=== PATIENT | male | born 1980 | race Caucasian/White ===

== ENCOUNTER 2018-04-18 21:04 | Emergency (ER) | payer BC ==
[2018-04-18 21:13] VITALS: BP 117/69
--- NOTE | 2018-04-18 21:17 | UC ---
Throat Pain/Nasal Hector HPI - HPI Summary HPI Summary: 37 yo male presents with a low grade fever for 3 days and headache for the last 2 days. Says that he has never had a headache like this before and it is mostly on the right temporal/frontal part of his head - worse with any movement. Has been eating and drinking ok except for today, he feels very nauseous, weak, and dizzy. He took ibuprofen this morning and tylenol around 1300 today. Denies recent illness, cough, SOB, chest pain, abdominal pain, vomiting, diarrhea, dysuria, or back pain. - History of Current Complaint Chief Complaint: UCRespiratory Stated Complaint: HEADACHE, LOW GRADE TEMP Time Seen by Provider: 04/18/18 21:17 Hx Obtained From: Patient Onset/Duration: Gradual Onset Severity: Severe Pain Intensity: 7 Pain Scale Used: 0-10 Numeric - Allergies/Home Medications Allergies/Adverse Reactions: Allergies Allergy/AdvReac Type Severity Reaction Status Date / Time ondansetron [From Zofran] Allergy Severe Hives Verified 04/18/18 21:14 Home Medications: Home Medications Acetaminophen [Extra Strength Non-Aspirin] 1,000 mg PO ONCE PRN 04/18/18 [ History Confirmed 04/18/18] Ibuprofen TAB* [Advil TAB*] 600 mg PO ONCE PRN 04/18/18 [History Confirmed 04/18] PMH/Surg Hx/FS Hx/Imm Hx - Additional Past Medical History Additional PMH: None Previously Healthy: Yes - Surgical History Surgical History: Yes Surgery Procedure, Year, and Place: left eye operation, ORAL SURGERY - Family History Known Family History: Positive: None - Social History Occupation: Employed Full-time Lives: With Family Alcohol Use: Occasionally Alcohol Amount: 2 Beers Daily Substance Use Type: None Smoking Status (MU): Light Every Day Tobacco Smoker Type: Cigarettes Amount Used/How Often: 1-3 cigarettes per day Length of Time of Smoking/Using Tobacco: 10 day Have You Smoked in the Last Year: Yes Review of Systems Constitutional: Fever, Fatigue Skin: Negative Eyes: Negative ENT: Sore Throat Respiratory: Negative Cardiovascular: Negative Gastrointestinal: Negative Neurovascular: Negative Musculoskeletal: Negative Neurological: Headache Psychological: Negative All Other Systems Reviewed And Are Negative: Yes Physical Exam - Summary Physical Exam Summary: GENERAL: WDWN. Shielding his eyes from the exam room lights SKIN: No rashes, sores, ulcers, masses, lesions. HEENT: Head: AT/NC Eyes: PERRLA. EOM intact. Conjunctiva clear without inflammation or discharge. Ears: Hearing grossly normal. TMs intact, no bulging, erythema, or edema. Nose: Nasal mucosa pink and moist. NTTP maxillary and frontal sinus. Throat: Posterior oropharynx without exudates, erythema, or tonsillar enlargement. Uvula midline. NECK: Supple. Nontender. No lymphadenopathy. CHEST: CTAB. No r/r/w. No accessory muscle use. Breathing comfortably and in no distress. CV: RRR. Without m/r/g. Pulses intact. Brisk cap refill. ABDOMEN: Soft. NTTP. No distention or guarding. No organomegaly. No CVA tenderness. Bowel sounds present MSK: FROM and 5/5 strength throughout. No edema. NEURO: Alert. CN II-XII grossly intact. PSYCH: Age appropriate behavior. Triage Information Reviewed: Yes Vital Signs: Initial Vital Signs Temp 101.5 F 04/18/18 21:09 Pulse 81 04/18/18 21:09 Resp 16 04/18/18 21:09 BP 117/69 04/18/18 21:09 Pulse Ox 97 04/18/18 21:09 Throat Pain/Nasal Course/Dx - Course Course Of Treatment: POC strep negative. Given 975mg tylenol and 4mg zofran in the clinic tonight. I had a long discussion with the pt that I am unsure as to the cause of his fever and worsening headache. I advised him that he should go to the ED to be further evaluated. He was agreeable to this plan and declined ambulance transfer. - Differential Dx/Diagnosis Provider Diagnoses: Fever. Headache. Photophobia Discharge - Sign-Out/Discharge Documenting (check all that apply): Discharge/Admit/Transfer - Discharge Plan Condition: Stable Disposition: HOME Forms: *Work Release Referrals: Carmelo Castellanos MD [Primary Care Provider] - Additional Instructions: Please go to the ER for further evaluation of your headache, photophobia, and fever. - Billing Disposition and Condition Condition: STABLE Disposition: Home
[2018-04-18] MEDS ORDERED: Acetaminophen TAB* 325 MG PO ONE (21:26)
[2018-04-18] MEDS ORDERED: Ondansetron ODT TAB* 4 MG PO ONE (21:35)
== END 2018-04-18 22:00 | disposition home or self-care (01) ==
LOC: UCEAST 21:04
DX: R50.9 Fever, unspecified (principal); R51 Headache; H53.149 Visual discomfort, unspecified; Z88.8 Allergy status to other drugs, medicaments and biological substances; F17.210 Nicotine dependence, cigarettes, uncomplicated
CPT/HCPCS: 87651; 99212; A9270-GY; G0463

== ENCOUNTER 2018-04-19 03:56 | Emergency (ER) | payer BC ==
[2018-04-19] MEDS ORDERED: methylPREDNISolone 125 MG* 2 ML VIAL IV ONE (04:23)
[2018-04-19] MEDS ORDERED: NS 0.9% 1000 ML* 1,000 ML IV ONE (04:23)
[2018-04-19] MEDS ORDERED: Ketorolac INJ* 30 MG/ML 1 ML VIAL IV PUSH ONE (04:23)
[2018-04-19 04:50] LABS: Hematocrit 39 % (42-52); Hemoglobin 13.7 g/dl (14.0-18.0); Mean Corpuscular HGB Conc 36 g/dl (31-36); Mean Corpuscular Hemoglobin 32 pg (27-31); Mean Corpuscular Volume 89 fL (80-94); Mean Platelet Volume 9.2 um3 (7.4-10.4); Platelet Count 146 10^3/ul (150-450); Red Blood Count 4.32 10^6/ul (4.00-5.40); Red Cell Distribution Width 12 % (10.5-15)
[2018-04-19 05:04] LABS: EGFR Non-African American 83.2 (>60)
[2018-04-19 05:11] LABS: ABS Basophils 0 10^3/ul (0-0.2); ABS Eosinophils 0 10^3/ul (0-0.6); ABS Lymphocytes 0.6 10^3/ul (1.0-4.8); ABS Monocytes 0.7 10^3/ul (0-0.8); ABS Neutrophils 4.5 10^3/ul (1.5-7.7)
[2018-04-19] MEDS ORDERED: Butalb/Acetamin/Caff TAB* 1 TAB PO ONE (05:21)
[2018-04-19 05:35] LABS: ABS Nucleated RBC 0 10^3/ul; Eosinophil % 0.5 % (0-6); Lymphocyte % 9.5 % (25-47); Nucleated Red Blood Cells % 0.1
[2018-04-19 06:37] VITALS: BP 111/57
--- NOTE | 2018-04-19 07:22 | ED ---
Shante Wang Gabriel, scribed for Alfredo Hyatt MD on 04/19/18 at 0419 . HPI Febrile Illness - HPI Summary HPI Summary: This patient is a 37 year old M presenting to [facility] c/o febrile illness that began two days ago. The patient rates the pain 7/10 in severity. Pts last antipyretic was last night at 2145.Patient reports nausea, dizziness, low grade fever (100), very intense VERA, sore throat, and diaphoresis. Patient denies cough , neck pain or stiffness, and recent travel. Pt seen at yesterday but is not improving. Pt states his headache is not severe while lying still but it is very intense if he learns forward. Pt states sick contacts at home and work. - History of Current Complaint Chief Complaint: EDHeadache Time Seen by Provider: 04/19/18 04:05 Hx From Patient Unobtainable Due To: Dementia Timing: Constant Initial Severity: Moderate Current Severity: Moderate Pain Intensity: 7 Pain Scale Used: 0-10 Numeric Associated Signs and Symptoms: Diaphoresis, Nausea, Other: - light headedness - Allergy/Home Medications Allergies/Adverse Reactions: Allergies Allergy/AdvReac Type Severity Reaction Status Date / Time ondansetron [From Zofran] Allergy Severe Hives Verified 04/19/18 04:01 PMH/Surg Hx/FS Hx/Imm Hx Endocrine/Hematology History: Denies: Hx Thyroid Disease, Hx Anemia, Hx Coagulopothy Cardiovascular History: Denies: Hx Auto Implanted Cardiovert Defib, Hx Cardiac Arrest, Hx Congenital Heart Disease Respiratory History: Denies: Hx Chronic Obstructive Pulmonary Disease (COPD), Hx Lung Cancer GI History: Denies: Hx Gastrointestinal Bleed Psychiatric History: Denies: Hx Attention Deficit Hyperactivity Disorder - Surgical History Surgery Procedure, Year, and Place: left eye operation, ORAL SURGERY - Immunization History Date of Tetanus Vaccine: 2013 (10/11/14) Date of Influenza Vaccine: 2013 Infectious Disease History: No Infectious Disease History: Denies: Hx Clostridium Difficile, Hx Hepatitis, Hx Human Immunodeficiency Virus (HIV), Hx of Known/Suspected MRSA, Hx Shingles, Hx Tuberculosis, Hx Known/ Suspected VRE, Hx Known/Suspected VRSA, History Other Infectious Disease, Traveled Outside the [place] in Last 30 Days - Family History Known Family History: Positive: None Negative: Blood Disorder - Social History Occupation: Employed Full-time - nurse Lives: With Family Alcohol Use: Occasionally Alcohol Amount: 2 Beers Daily Substance Use Type: Reports: None Smoking Status (MU): Light Every Day Tobacco Smoker Type: Cigarettes Amount Used/How Often: 1-3 cigarettes per day Length of Time of Smoking/Using Tobacco: 10 day Have You Smoked in the Last Year: Yes Review of Systems Positive: Fever, Skin Diaphoresis Positive: Sore Throat Positive: Nausea Neurological: Other - dizziness Positive: Headache All Other Systems Reviewed And Are Negative: Yes Physical Exam - Summary Physical Exam Summary: Appearance: no distress, Well-nourished Skin: Warm, color reflects adequate perfusion Head: Normal Head/Face inspection Eyes: Conjunctiva clear, PERRLA ENT: Normal inspection Neck: Supple, no adenopathy, no meningusmus Respiratory: Lungs clear, Normal breath sounds, no respiratory distress Cardio: RRR, No murmur, pulses normal, brisk capillary refill Abdomen: soft, nontender, no guarding, no rebound Bowel sounds: present Musculoskeletal: Strength Intact/ ROM intact. No calf tenderness. No edema. Neuro: Alert, muscle tone normal, facial symmetry, speech normal, sensory/motor intact; CN intact II-XII Psychological: Normal Triage Information Reviewed: Yes Vital Signs On Initial Exam: Initial Vitals Temp Pulse Resp BP Pulse Ox 100.5 F 82 16 110/61 97 04/19/18 03:57 04/19/18 03:57 04/19/18 03:57 04/19/18 03:57 04/19/18 03:57 Vital Signs Reviewed: Yes Diagnostics - Vital Signs Vital Signs Temp Pulse Resp BP Pulse Ox 04/19/18 03:57 100.5 F 82 16 110/61 97 - Laboratory Lab Results: Lab Results 04/19/18 04/19/18 04/19/18 Range/Units 04:40 04:40 04:41 WBC 6.0 (3.5-10.8) 10^3/ul RBC 4.32 (4.00-5.40) 10^6/ul Hgb 13.7 L (14.0-18.0) g/dl Hct 39 L (42-52) % MCV 89 (80-94) fL MCH 32 H (27-31) pg MCHC 36 (31-36) g/dl RDW 12 (10.5-15) % Plt Count 146 L (150-450) 10^3/ul MPV 9.2 (7.4-10.4) um3 Neut % (Auto) 77.0 (38-83) % Lymph % (Auto) 9.5 L (25-47) % Lucas % (Auto) 12.6 H (0-7) % Eos % (Auto) 0.5 (0-6) % Baso % (Auto) 0.4 (0-2) % Absolute Neuts (auto) 4.5 (1.5-7.7) 10^3/ul Absolute Lymphs (auto) 0.6 L (1.0-4.8) 10^3/ul Absolute Monos (auto) 0.7 (0-0.8) 10^3/ul Absolute Eos (auto) 0 (0-0.6) 10^3/ul Absolute Basos (auto) 0 (0-0.2) 10^3/ul Absolute Nucleated RBC 0 10^3/ul Nucleated RBC % 0.1 Sodium 135 (135-145) mmol/L Potassium 3.9 (3.5-5.0) mmol/L Chloride 102 (101-111) mmol/L Carbon Dioxide 25 (22-32) mmol/L Anion Gap 8 (2-11) mmol/L BUN 12 (6-24) mg/dL Creatinine 1.00 (0.67-1.17) mg/dL Est GFR ( Amer) 107.0 (>60) Est GFR (Non-Af Amer) 83.2 (>60) BUN/Creatinine Ratio 12.0 (8-20) Glucose 113 H (70-100) mg/dL Calcium 8.6 (8.6-10.3) mg/dL Total Bilirubin 0.90 (0.2-1.0) mg/dL AST 19 (13-39) U/L ALT 14 (7-52) U/L Alkaline Phosphatase 57 (34-104) U/L Total Protein 6.3 L (6.4-8.9) g/dL Albumin 3.9 (3.2-5.2) g/dL Globulin 2.4 (2-4) g/dL Albumin/Globulin Ratio 1.6 (1-3) Influenza A (Rapid) Negative (Negative) Influenza B (Rapid) Negative (Negative) Result Diagrams: 06/17/18 04:40 04/19/18 04:40 Lab Statement: Any lab studies that have been ordered have been reviewed, and results considered in the medical decision making process. Re-Evaluation - Re-Evaluation First Eval Re-Evaluation Time: 06:25 Change: Improved Comment: Pt resting comfortably in bed. pt with no evidence of acute bacterial infection. pt with no meningismus. Pt symptoms most consistent with viral infection. Pt headache resolved. Pt repeat CN exam intact II-XII. Course/Dx - Febrile Illness Differential Diagnoses: Fever of Unknown Origin, Meningitis, Pneumonia, Sepsis, Viremia - Diagnoses Provider Diagnoses: Viral syndrome Discharge - Sign-Out/Discharge Documenting (check all that apply): Discharge/Admit/Transfer - Discharge Plan Condition: Improved Disposition: HOME Prescriptions: Ketorolac TAB * [Toradol TAB *] 10 mg PO Q6H PRN #10 tab PRN Reason: Pain predniSONE TAB* [Deltasone 20 MG TAB*] 40 mg PO DAILY 3 Days #6 tab Patient Education Materials: Viral Syndrome (ED) Forms: *Work Release Referrals: Carmelo Castellanos MD [Primary Care Provider] - 2 Days - Billing Disposition and Condition Condition: IMPROVED Disposition: Home The documentation as recorded by the Shante tomlin Gabriel accurately reflects the service I personally performed and the decisions made by Edmar mari Omari A, MD.
== END 2018-04-19 06:45 | disposition home or self-care (01) ==
LOC: ED 03:56
DX: B34.9 Viral infection, unspecified (principal); J02.9 Acute pharyngitis, unspecified; R50.9 Fever, unspecified; F17.210 Nicotine dependence, cigarettes, uncomplicated; R51 Headache; R11.0 Nausea
CPT/HCPCS: 36415; 80053; 82607; 82728; 82746; 83540; 85025; 86710; 87502; 96374; 96375; 99283; A9270-GY; J1885; J2930

== ENCOUNTER 2018-09-06 12:45 | Emergency (ER) | payer BC, OTHER ==
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
[2018-09-06 13:23] VITALS: BP 133/71
== END 2018-09-06 13:22 | disposition home or self-care (01) ==
LOC: ED 12:45
DX: S10.93XA Contusion of unspecified part of neck, initial encounter (principal); Y04.2XXA Assault by strike against or bumped into by another person, initial encounter; Y93.F9 Activity, other caregiving; Y92.238 Other place in hospital as the place of occurrence of the external cause; Y99.0 Civilian activity done for income or pay; Z88.8 Allergy status to other drugs, medicaments and biological substances; F17.210 Nicotine dependence, cigarettes, uncomplicated
CPT/HCPCS: 99282

== ENCOUNTER 2019-05-31 12:30 | Emergency (ER) | payer BC ==
[2019-05-31 13:39] VITALS: BP 112/68
--- NOTE | 2019-05-31 14:03 | UC ---
Throat Pain/Nasal Hector HPI - HPI Summary HPI Summary: 38 yo male with sore thoat x > 7 days nasal congestion and post nasal drip very mild cough no f/c no n/v/d - History of Current Complaint Chief Complaint: UCGeneralIllness Stated Complaint: ST Time Seen by Provider: 05/31/19 12:51 Hx Obtained From: Patient Onset/Duration: Gradual Onset, Lasting Days Severity: Moderate Pain Intensity: 4 Pain Scale Used: 0-10 Numeric Associated Signs & Symptoms: Positive: Dysphagia - Allergies/Home Medications Allergies/Adverse Reactions: Allergies Allergy/AdvReac Type Severity Reaction Status Date / Time ondansetron [From Zofran] Allergy Severe Hives Verified 05/31/19 13:39 PMH/Surg Hx/FS Hx/Imm Hx Previously Healthy: Yes - Lyme disease - Surgical History Surgical History: Yes Surgery Procedure, Year, and Place: left eye operation, ORAL SURGERY - Family History Known Family History: Positive: Hypertension Negative: Blood Disorder - Social History Alcohol Use: Occasionally Alcohol Amount: 2 Beers Daily Substance Use Type: None Smoking Status (MU): Light Every Day Tobacco Smoker Type: Cigarettes Amount Used/How Often: 1-3 cigarettes per day Length of Time of Smoking/Using Tobacco: 10 day Have You Smoked in the Last Year: Yes - Immunization History Most Recent Influenza Vaccination: unknown Most Recent Pneumonia Vaccination: never Review of Systems All Other Systems Reviewed And Are Negative: Yes Constitutional: Positive: Negative Skin: Positive: Negative Eyes: Positive: Negative ENT: Positive: Sore Throat, Nasal Discharge, Sinus Congestion, Sinus Pain/ Tenderness Respiratory: Positive: Cough Cardiovascular: Positive: Negative Gastrointestinal: Positive: Negative Genitourinary: Positive: Negative Motor: Positive: Negative Neurovascular: Positive: Negative Musculoskeletal: Positive: Negative Neurological: Positive: Negative Psychological: Positive: Negative Physical Exam Triage Information Reviewed: Yes Appearance: Well-Appearing, No Pain Distress, Well-Nourished Vital Signs: Initial Vital Signs Temp 99.3 F 05/31/19 13:37 Pulse 68 05/31/19 13:37 Resp 16 05/31/19 13:37 BP 112/68 05/31/19 13:37 Pulse Ox 100 05/31/19 13:37 Vital Signs Reviewed: Yes Eyes: Positive: Conjunctiva Clear ENT: Positive: Hearing grossly normal, Pharyngeal erythema, Nasal congestion, TMs normal, Hoarse voice, Sinus tenderness, Uvula midline. Negative: Nasal drainage, Tonsillar swelling, Tonsillar exudate, Trismus, Muffled voice Dental Exam: Normal Neck: Positive: Supple, Enlarged Nodes @ - ant cerv Respiratory: Positive: Lungs clear, Normal breath sounds, No respiratory distress, No accessory muscle use Cardiovascular: Positive: RRR, No Murmur Musculoskeletal: Positive: ROM Intact, No Edema Neurological: Positive: Alert Psychological Exam: Normal Skin Exam: Normal Diagnostics - Laboratory Lab Results: strep (-) Throat Pain/Nasal Course/Dx - Differential Dx/Diagnosis Provider Diagnosis: Pharyngitis, Sinusitis Discharge - Sign-Out/Discharge Documenting (check all that apply): Patient Departure All imaging exams completed and their final reports reviewed: No Studies - Discharge Plan Condition: Critical Disposition: HOME Prescriptions: Amoxicillin PO (*) [Amoxicillin 875 MG (*)] 875 mg PO BID #20 tab Patient Education Materials: Pharyngitis (ED) Referrals: Carmelo Castellanos MD [Primary Care Provider] - 4 Days (if not better) - Billing Disposition and Condition Condition: CRITICAL Disposition: Home
== END 2019-05-31 14:10 | disposition home or self-care (01) ==
LOC: UCEAST 12:30
DX: J02.9 Acute pharyngitis, unspecified (principal); J32.9 Chronic sinusitis, unspecified; F17.210 Nicotine dependence, cigarettes, uncomplicated
CPT/HCPCS: 87651; 99212; G0463